=== PATIENT | male | born 1980 | race Caucasian/White ===

== ENCOUNTER → 2024-11-25 07:40 | Outpatient (REF) | payer OTHER, SELFPAY | LOC: MRI 07:40 | PROVIDERS: ATTENDING PHYSICIAN Internal Medicine Gastroenterology; FAMILY PHYSICIAN Nurse Practitioner Family | DX: K76.0 Fatty (change of) liver, not elsewhere classified (principal) | CPT/HCPCS: 74183; 76391; A9581 ==

== ENCOUNTER → 2025-06-25 09:20 | Outpatient (REF) | payer OTHER, SELFPAY | LOC: RAD 09:20 | PROVIDERS: ATTENDING PHYSICIAN Nurse Practitioner Family | DX: R20.2 Paresthesia of skin (principal); M54.2 Cervicalgia | CPT/HCPCS: 72050 ==